=== PATIENT | male | born 1965 | race Caucasian/White ===

== ENCOUNTER 2020-08-04 13:50 | Outpatient (CLI) | payer OTHER | END 2020-08-04 13:51 | disposition home or self-care (01) | LOC: COV 13:50 | PROVIDERS: ATTEND Family Medicine | DX: Z20.828 Contact with and (suspected) exposure to other viral communicable diseases (principal) ==

== ENCOUNTER 2022-01-21 12:54 | Outpatient (CLI) | payer OTHER ==
--- NOTE | 2022-01-22 09:35 | MRI Report ---
PROCEDURE: Wrist LT W/O INDICATIONS: PAIN IN LEFT WRIST TECHNIQUE: Noncontrast coronal proton density fast spin echo and T2 fast spin echo with fat saturation; coronal 3-D gradient echo, axial T1 spin echo and T2 fast spin echo with fat saturation, sagittal T1 spin ech o through the wrist. COMPARISON: None. FINDINGS: Image quality: Excellent. Bones and cartilage: The carpal bones are normally aligned. Marrow edema involving triquetrum is see n without discrete fracture line. Extensive marrow edema throughout the falciform is also seen with s ubcortical cystic area in distal portion of the pisiform. No definite fracture line is seen. Osteoart hritic changes are noted throughout wrist joints with joint space narrowing, subchondral sclerosis. S ubcortical cystic areas are noted in distal portion of scaphoid, proximal lunate and mid to distal po rtion of the triquetrum. No evidence of osteonecrosis. Carpal ligaments: The scapholunate and lunotriquetral ligaments appear intact. In the absence of in tra-articular contrast, the extrinsic carpal ligaments are not well identified. On sagittal images, the pisohamate ligament appears intact. Triangular fibrocartilage complex: Signal abnormality within central and medial portion of triangular fibrocartilage is seen suggestive of TFCC tear. The adjacent meniscal homolog appears normal in the absence of intra-articular contrast. The extensor carpi ulnaris tendon is mildly thickened at the le hanna of ulnar styloid tip and triquetrum.. Tendons and soft tissues: The carpal tunnel structures appear normal, including the median nerve. T he ulnar nerve appears normal within Guyon's canal. Rest of the extensor tendon compartments demonstr ate normal morphology, without pathologic tendon sheath fluid. Tiny ganglion cyst over volar aspect o f ulnar styloid is seen measures 3 mm in size. IMPRESSION: 1. Marrow edema involving pisiform and triquetrum without definite fracture line suggestive of bony c ontusion. 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 No evidence of o steonecrosis. 2. Suggestion of trigone of fibrocartilage tear near its ulnar insertion and central portion. 3. Intrinsic and extrinsic wrist ligaments are intact. 4. Mild tendinosis involving extensor carpi ulnaris tendon at the level of the triquetrum and ulnar s tyloid tip. Presently wrist tendons are intact. 5. Tiny ganglion cyst over volar aspect of ulnar styloid measures 3 mm in size. Reviewed by: Remington Lainez MD on 01/22/2022 9:34 AM PDT Approved by: Remington Lainez MD on 01/22/2022 9:34 AM PDT Station ID: [id number]
== END 2022-01-21 12:55 | disposition home or self-care (01) ==
LOC: DI 12:54
PROVIDERS: ATTEND Student in an Organized Health Care Education/Training Program
DX: M19.032 Primary osteoarthritis, left wrist (principal); M67.432 Ganglion, left wrist; M67.932 Unspecified disorder of synovium and tendon, left forearm